=== PATIENT | female | born 1955 | race Caucasian/White ===

== ENCOUNTER 2023-10-02 06:06 | Day surgery (SDC) | payer MEDICARE, MEDICAID ==
[2023-09-25 15:58] LABS: BASOPHILS # (AUTO) 0.1 X10'3 (0-0.2); BASOPHILS % (AUTO) 0.7 % (0-1); EOSINOPHILS # (AUTO) 0.2 X10'3 (0-0.9); LYMPHOCYTES # (AUTO) 2.6 X10'3 (1.1-4.8); LYMPHOCYTES % (AUTO) 31.7 % (21-51); MEAN CORPUSCULAR HEMOGLOBIN 30.2 PG (27.0-31.0); MEAN CORPUSCULAR HGB CONC 34.2 g/dL (33.0-36.5); MEAN CORPUSCULAR VOLUME 88.1 FL (78-98); MEAN PLATELET VOLUME 7.9 FL (7.4-10.4); MONOCYTES # (AUTO) 0.8 X10'3 (0-0.9); MONOCYTES % (AUTO) 9.3 % (2-12); NEUTROPHILS # (AUTO) 4.6 X10'3 (1.8-7.7); NEUTROPHILS % (AUTO) 56.3 % (42-75); PRE OP HEMATOCRIT 39.9 % (35.0-45.0); PRE OP HEMOGLOBIN 13.7 g/dL (12.0-16.0); PRE OP PLATELET COUNT 367 X10'3 (140-440); PRE OP WHITE BLOOD COUNT 8.2 10'3 (4.8-10.8); RED BLOOD COUNT 4.52 X10'6 (4.20-5.60); RED CELL DISTRIBUTION WIDTH 13.5 % (11.5-14.5)
[2023-09-25 16:14] LABS: PRE OP PROTIME 10.3 SECONDS (9.0-12.0)
[2023-09-25 16:28] LABS: ALBUMIN 3.6 G/DL (3.4-5.0); ALBUMIN/GLOBULIN RATIO 0.9 (1.1-1.5); ALKALINE PHOSPHATASE 93 IU/L (46-116); BLOOD UREA NITROGEN 19 MG/DL (7-18); BUN/CREATININE RATIO 25.7 (10.0-20.0); CALCIUM 9.4 MG/DL (8.5-10.1); CHLORIDE 104 MMOL/L (99-107); CREATININE 0.74 MG/DL (0.40-0.90); PRE OP ALT 64 U/L (30-65); PRE OP ANION GAP 9 (8-16); PRE OP AST 30 U/L (10-37); PRE OP BILIRUB, TOTAL 0.5 MG/DL (0.0-1.0); PRE OP GLUCOSE 108 MG/DL (70-104); PRE OP POTASSIUM 3.5 MMOL/L (3.4-5.1); PRE OP SODIUM 138 MMOL/L (135-145); TOTAL CARBON DIOXIDE 24.6 MMOL/L (24-32); TOTAL PROTEIN 7.7 G/DL (6.4-8.2); eGFR 79 ML/MIN
[~2023-10-02] VITALS: Ht 154.9 cm; Wt 71.4 kg
[2023-10-02] MEDS: clindamycin-Cleocin 900mg/D5W 50 ML IV ONE (05:30)
[~2023-10-02 06:06] MED LIST: AMLO10TA13 PO; CLON0.1T2 PO; LOSA25TA41 PO; PRAV40TA3 PO
[2023-10-02] MEDS ORDERED: BUPIVAcaine 0.5% inj/PF 30 ML ONE (06:36)
[2023-10-02] MEDS ORDERED: bacitracin 15gm ointment TP ONE (06:37)
[2023-10-02] MEDS ORDERED: LIDOcaine 1% W/epiNEPHrine 1:100,000 20ml vial ONE (06:37)
[2023-10-02 07:00] VITALS: BP 135/93; PULSE 69; RESP 16; TEMP 98.6; O2SAT 98
[2023-10-02 07:37] LABS: BILIRUBIN,URINE NEGATIVE (Neg); CLARITY,URINE SLIGHTLY CLOUDY (Clear); COLOR,URINE YELLOW (Yellow); GLUCOSE, URINE NEGATIVE (Neg); KETONES,URINE NEGATIVE (Neg); LEUKOCYTE ESTERASE ,URINE NEGATIVE (Neg); NITRITES, URINE NEGATIVE (Neg); OCCULT BLOOD,URINE TRACE-INTACT (Neg); PH,URINE 5.5 (4.8-8.0); PROTEIN,URINE NEGATIVE (Neg); UROBILINOGEN,URINE 0.2 E.U/dL (0.2-1.0)
[2023-10-02 07:41] LABS: UA COLLECTION TYPE CLN CATCH MIDSTREAM
[2023-10-02 07:44] LABS: SQUAMOUS EPITHELIAL CELL,UR MODERATE /LPF (FEW)
[2023-10-02] MEDS: ringers solution, lacted 1,000 ML IV SCH ×2 (07:44→09:36)
[2023-10-02] MEDS: famotidine 20mg tablet PO ONE (07:44)
[2023-10-02 07:45] LABS: TRANSITIONAL EPI CELLS,URINE FEW /HPF; WBC,URINE 0-4 /HPF (0-4)
[2023-10-02 07:46] LABS: BACTERIA,URINE FEW /HPF (Neg); RBC,URINE 0-2 /HPF (0-2)
[2023-10-02 07:51] LABS: AMORPHOUS URATES 1+
[2023-10-02 07:52] LABS: MUCUS STRANDS MODERATE /LPF (Neg)
[2023-10-02] MEDS ORDERED: fentaNYL/PF 50MCG/1 ML 2ML syringe ONE (08:28)
[2023-10-02] MEDS ORDERED: sevoflurane 250ml liquid IH ONE (08:29)
[2023-10-02] MEDS ORDERED: propofol inj 20 ML IV ONE (08:30)
[2023-10-02] MEDS: BUPIVAcaine 0.5% inj/PF 30 ml vial IJ ONE (09:07)
[2023-10-02] MEDS ORDERED: ondansetron/PF 4mg/2ml inj ONE (09:12)
[2023-10-02] MEDS ORDERED: dexamethasone sod phosphate 4mg/ml inj. ONE (09:12)
[2023-10-02] MEDS ORDERED: ondansetron/PF 4mg/2ml inj IV PRN (09:15)
[2023-10-02] MEDS ORDERED: proCHLORperazine 10 MG/2 ml inj IV PRN (09:15)
[2023-10-02] MEDS ORDERED: meperidine/PF 25mg/ml syringe IV PRN ×3 (09:15)
[2023-10-02] MEDS ORDERED: morphine 4 MG/ML inj SYRINge IV PRN (09:15)
[2023-10-02] MEDS ORDERED: morphine 2 MG/ML inj. syringe IV PRN (09:15)
[2023-10-02 09:29] VITALS: BP 113/64; PULSE 64; RESP 16; O2SAT 98
[2023-10-02 09:40] VITALS: BP 103/63; PULSE 63; RESP 12; O2SAT 94
[2023-10-02 09:50] VITALS: BP 100/57; PULSE 62; RESP 12; O2SAT 90
[2023-10-02 10:00] VITALS: BP 111/68; PULSE 61; RESP 16; O2SAT 94
[2023-10-02 10:10] VITALS: BP 117/92
== END 2023-10-02 10:29 | disposition home or self-care (01) ==
LOC: PAS 06:06
PROVIDERS: ATTEND Podiatrist Foot & Ankle Surgery
DX: M20.41 Other hammer toe(s) (acquired), right foot (principal); L84 Corns and callosities; I10 Essential (primary) hypertension; E78.5 Hyperlipidemia, unspecified; F41.9 Anxiety disorder, unspecified; I20.9 Angina pectoris, unspecified; Z79.899 Other long term (current) drug therapy; Z98.51 Tubal ligation status; Z88.0 Allergy status to penicillin
CPT/HCPCS: 28285; 36415; 71046; 73620; 80053; 81001; 82948; 85025; 85610; 85730; A6222; C1713; J0665; J1100; J2405; J2704; J3010; J3490; J7030; J7120; Z7506; Z7512; 76000; A4215; A4618; A6253; A6446; A6449; A6455; A7000; S0020